=== PATIENT | female | born 1955 | race African-American/Black ===

== ENCOUNTER → 2016-07-04 | Day surgery (SDC) | payer BC ==
[~2016-07-04] MED LIST: LIDOCAINE HCL/EPINEPHRINE 1%-EPI 1:100,000 30 ML VIAL INFIL ONE; SODIUM BICARBONATE 8.4% 1 MEQ/ML 50ML SYR IV ONE
== END | disposition home or self-care (01) ==
LOC: RAD 09:32
PROVIDERS: ATTEND Family Medicine
DX: N63 Unspecified lump in breast (principal)
CPT/HCPCS: 19083; 88106; 88305; A4648; J3490